=== PATIENT | female | born 1950 | race Caucasian/White ===

== ENCOUNTER → 2017-05-28 | Outpatient (CLI) | payer MEDICARE, BC | END | disposition home or self-care (01) | LOC: PCVCCLINIC 15:59 | PROVIDERS: ATTEND Internal Medicine Cardiovascular Disease | DX: I10 Essential (primary) hypertension (principal); R00.2 Palpitations; E78.00 Pure hypercholesterolemia, unspecified; Z96.651 Presence of right artificial knee joint; Z90.13 Acquired absence of bilateral breasts and nipples; Z98.51 Tubal ligation status; Z87.891 Personal history of nicotine dependence | CPT/HCPCS: G0463 ==

== ENCOUNTER → 2017-06-13 | Outpatient (CLI) | payer MEDICARE, BC ==
--- NOTE | 2017-06-13 16:06 | PCVCIMAG ---
APPROVED REPORT Study performed: 06/13/2017 13:05:29 EXAM: Comprehensive 2D, Doppler, and color-flow Echocardiogram Patient Location: Echo lab Status: routine BSA: 2.27 HR: 65 bpmBP: 124/78 mmHg Rhythm: NSR Other Information Study Quality: Good Risk Factors: Cardiac Risk Factors: HTN, Hyperlipidemia Indications Dyspnea Palpitations 2D Dimensions LVEF(%): 65.48 (>50%) IVSd: 10.23 (7-11mm)LVOT Diam: 18.59 (18-24mm) LVDd: 48.21 mm PWd: 9.57 (7-11mm)Ascending Ao: 27.85 (22-36mm) LVDs: 30.86 (25-40mm) Left Atrium: 47.38 (27-40mm) Aortic Root: 28.42 mm Ramirez's LVEF: 65.48 % Volumes Left Atrial Volume (Systole) Single Plane 4CH: 49.42 mLSingle Plane 2CH: 41.11 mL Mitral Valve E/A Ratio: 0.8 MV Decel. Time: 301.31 ms MV E Max Jaycob.: 0.79 m/s MV A Jaycob.: 0.94 m/s IVRT: 76.12 ms TDI E/Lateral E': 13.17E/Medial E': 26.33 Medial E' Jaycob.: 0.03 m/s Lateral E' Jaycob.: 0.06 m/s Pulmonary Valve PV Peak Jaycob.: 1.11 m/sPV Peak Gr.: 4.98 mmHg Pulmonary Vein P Vein S: 0.54 m/sP Vein A: 0.34 m/s P Vein D: 0.57 m/sP Vein A Dur.: 100.3 msec P Vein S/D Ratio: 0.95 Tricuspid Valve TR Peak Jaycob.: 3.02 m/sRAP Estimate: 5.00 mmHg TR Peak Gr.: 36.40 mmHg PA Pressure: 41.00 mmHg Left Ventricle The left ventricle is normal size. There is normal LV segmental wall motion. There is normal left ventricular wall thickness. Left ventricular systolic function is normal. The left ventricular ejection fraction is within the normal range. LVEF is 60-65%. Grade I - abnormal relaxation pattern. Right Ventricle The right ventricle is normal size. The right ventricular systolic function is normal. Atria The left atrium size is normal. The right atrium size is normal. Aortic Valve Aortic valve is trileaflet. Mild aortic valve sclerosis. No aortic regurgitation is present. There is no aortic valvular stenosis. Mitral Valve There is mitral annular calcification. There is no mitral valve regurgitation noted. No evidence of mitral valve stenosis. Tricuspid Valve The tricuspid valve is normal in structure. Trace to mild tricuspid regurgitation. Pulmonary artery pressure is 41 mmHg. Pulmonic Valve The pulmonary valve is normal in structure. Trace to mild pulmonic regurgitation. Great Vessels The aortic root is normal in size. IVC is normal in size and collapses with >50% inspiration Pericardium There is no pericardial effusion. <Conclusion> The left ventricle is normal size. Left ventricular systolic function is normal. Grade I - abnormal relaxation pattern. The right ventricle is normal size. The left atrium size is normal. Aortic valve is trileaflet. Mild aortic valve sclerosis. There is no mitral valve regurgitation noted. Trace to mild tricuspid regurgitation. Pulmonary artery pressure is 41 mmHg.
== END | disposition home or self-care (01) ==
LOC: PCVCIMAG 12:57
PROVIDERS: ATTEND Internal Medicine Cardiovascular Disease
DX: I07.1 Rheumatic tricuspid insufficiency (principal); I37.1 Nonrheumatic pulmonary valve insufficiency; I10 Essential (primary) hypertension; E78.00 Pure hypercholesterolemia, unspecified
CPT/HCPCS: 93306

== ENCOUNTER → 2017-06-21 | Outpatient (CLI) | payer MEDICARE, BC | END | disposition home or self-care (01) | LOC: PCVCCLINIC 15:44 | PROVIDERS: ATTEND Internal Medicine Cardiovascular Disease | DX: R06.02 Shortness of breath (principal); I10 Essential (primary) hypertension; Z79.899 Other long term (current) drug therapy; Z79.891 Long term (current) use of opiate analgesic | CPT/HCPCS: G0463 ==